=== PATIENT | male | born 1985 | race Caucasian/White ===

== ENCOUNTER 2018-02-25 08:50 | Day surgery (SDC) | payer OTHER ==
[2018-02-24 12:50] LABS: BASOPHILS 0.3 % (0-2); EOSINOPHILS 1.7 % (0-7); HEMOGLOBIN 14.7 g/dL (13.5-17.5); IMMATURE GRANULOCYTES 0.3 % (0-5); LYMPHOCYTES 29.8 % (15-50); MCH 28.5 pg (26.0-34.0); MCHC 33.4 g/dL (31.0-37.0); MCV 85.4 fL (80.0-100.0); MEAN PLATELET VOLUME 10.5 fL (7.4-10.4); MONOCYTES 7.5 % (2-11); NEUTROPHILS 60.4 % (40-80); PLATELET COUNT 163 10x3/uL (130-400); RBC 5.15 10x6/uL (4.20-6.10); RDW 13.3 % (11.5-14.5); WBC 6.5 10x3/uL (4.8-10.8)
[2018-02-24 13:08] LABS: CALC OSMOLALITY 279 mosm/kg (275-300); CALCIUM 8.9 mg/dL (8.5-10.1); CHLORIDE - SERUM 104 mmol/L (98-107); CREATININE - SERUM 0.9 mg/dL (0.6-1.3); GLUCOSE 151 mg/dL (74-106); POTASSIUM - SERUM 3.7 mmol/L (3.5-5.1); SODIUM 139 mmol/L (136-145); UREA NITROGEN 9 mg/dL (7-18); eGFR NON AFRICAN AMERICAN > 90 mL/min (90-120)
[~2018-02-25] VITALS: Ht 188 cm; Wt 173.7 kg
--- NOTE | ~2018-02-25 | OP ---
PATIENT NAME: GABRIELA ELIZONDO MEDICAL RECORD: [id number] LOCATION:[facility] ADMISSION DATE: SURGEON: ALEKSEY VICTORIA MD DATE OF OPERATION: 02/25/2018 PREOPERATIVE DIAGNOSES: 1. Biliary dyskinesia. 2. Morbid obesity with a BMI of 49. 3. Diabetes mellitus. 4. Gastroesophageal reflux disease. 5. Asthma. POSTOPERATIVE DIAGNOSES: 1. Biliary dyskinesia. 2. Morbid obesity with a BMI of 49. 3. Diabetes mellitus. 4. Gastroesophageal reflux disease. 5. Asthma. PROCEDURE: Laparoscopic cholecystectomy. SURGEON: Aleksey Victoria MD REPORT OF PROCEDURE: The patient's abdomen was prepped and draped in sterile fashion. A cutdown was made just above the umbilicus in the midline. The 0 Vicryls were placed in the fascia bilaterally and the fascia was incised with a 15-blade. I then bluntly entered the peritoneal cavity and placed a 12-mm Laverne port. Under direct visualization, a 5-mm trocar was placed in the epigastrium and 2 more 5-mm trocars were placed in the right subcostal region. The gallbladder was grasped and elevated. There were some chronic inflammatory adhesions that were present of the fatty tissue to the gallbladder wall. These were teased down carefully with blunt dissection. We eventually dissected out the cystic artery and cystic duct. These structures were clipped proximally and distally and ligated in standard fashion. The gallbladder was then taken off the liver bed using electrocautery and placed into the right upper quadrant. Any bleeding from the liver bed was then treated with electrocautery. At this point, we irrigated out the right upper quadrant and assured there was no sign of any bleeding or bile leakage. The ports and insufflation were then removed, and the gallbladder was taken out through the umbilicus. The umbilical fascia was closed with interrupted 0 Vicryls times 3. The wounds were then irrigated out with normal saline and infused with 10 mL of 0.25% Marcaine with epinephrine. The skin incisions were all closed with subcutaneous 5-0 Monocryl and dressed appropriately. COMPLICATIONS: None. CONDITION: Stable. ANESTHESIA: General endotracheal and local. BLOOD LOSS: Minimal. TRANSINT:[id number] Voice Confirmation ID: [id number] DOCUMENT ID: [id number] OPERATIVE REPORT [id number] CAROGABRIELA ALEKSEY VICTORIA MD at 1219 CC: ASHLEY BRUNSON MD [id number] DICTATION DATE: 02/25/18 1152 IT SUPPORT MANAGER: 02/25/18 1200 [facility] 02/25/18 [facility] [address] [place] [address]
[~2018-02-25 08:50] MED LIST: CABERGOLINE0.5 MG PO; CARAFATE1 G; GLUCOPHAGE500 MG PO; OMEPRAZOLE20 M1 PO
[2018-02-25 09:11] VITALS: BP 107/73; Ht 188 cm; Wt 173.7 kg
[2018-02-25] MEDS ORDERED: NORCO 10-325 TA1 TAB PO (11:48)
== END 2018-02-25 15:02 | disposition home or self-care (01) ==
LOC: D.OPS 08:50 → D.PAN 10:45 → D.OPS 10:45
PROVIDERS: Surgery
DX: K80.10 Calculus of gallbladder with chronic cholecystitis without obstruction (principal); E66.01 Morbid (severe) obesity due to excess calories; Z68.42 Body mass index [BMI] 45.0-49.9, adult; E11.9 Type 2 diabetes mellitus without complications; K21.9 Gastro-esophageal reflux disease without esophagitis; J45.909 Unspecified asthma, uncomplicated; Z01.812 Encounter for preprocedural laboratory examination